=== PATIENT | female | born 2000 | race Caucasian/White ===

== ENCOUNTER 2024-08-08 14:37 | Emergency (ER) | payer SELFPAY | END 2024-08-08 16:22 | disposition home or self-care (01) | LOC: JP.ED 14:37 | DX: S09.90XA Unspecified injury of head, initial encounter (principal); Z79.899 Other long term (current) drug therapy; Z88.8 Allergy status to other drugs, medicaments and biological substances; W22.8XXA Striking against or struck by other objects, initial encounter | CPT/HCPCS: 99283 ==

== ENCOUNTER 2025-05-15 09:12 | Emergency (ER) | payer SELFPAY ==
[2025-05-15 10:50] LABS: BASOPHILS ABSOLUTE AUTO 0.04 K/uL (0.00-0.10); BASOPHILS PERCENT AUTO 0.7 % (0.1-1.3); EOSINOPHILS ABSOLUTE AUTO 0.14 K/uL (0.00-0.40); EOSINOPHILS PERCENT AUTO 2.5 % (0.0-5.4); IMMATURE GRAN ABSOLUTE AUTO 0.02 K/uL (0.00-0.23); IMMATURE GRAN PERCENT AUTO 0.4 % (0.0-0.7); LYMPHOCYTES ABSOLUTE AUTO 1.66 K/uL (0.8-3.3); LYMPHOCYTES PERCENT AUTO 29.4 % (11.4-47.7); MONOCYTES ABSOLUTE AUTO 0.40 K/uL (0.20-0.90); MONOCYTES PERCENT AUTO 7.1 % (3.3-12.6); NEUTROPHILS ABSOLUTE AUTO 3.38 K/uL (1.0-7.6); NEUTROPHILS PERCENT AUTO 59.9 % (40.0-78.1); PLATELET COUNT,PLT 187 K/uL (130-375); RED BLOOD CELL COUNT 4.55 M/uL (3.77-5.24); WHITE BLOOD CELL COUNT,WBC 5.6 K/uL (3.2-11.0)
[2025-05-15 11:10] LABS: A/G RATIO 1.1 (1.2-2.2); ALANINE AMINOTRANSFERASE,ALT 29 U/L (12-78); ASPARTATE AMNIOTRANSFERASE,AST 13 U/L (15-37); BILIRUBIN TOTAL 0.3 mg/dL (0.2-1.0); BLOOD UREA NITROGEN,BUN 12 mg/dL (7-18); CARBON DIOXIDE,CO2 32 mmol/L (21-32); CHLORIDE,CL 105 mmol/L (100-108); CREATININE 0.6 mg/dL (0.6-1.0); EST CRCL DRUG DOSING (CG) 122.69 mL/min; ESTIMATED GFR 127 mL/min (>60); GLUCOSE RANDOM 85 mg/dL (74-106); POTASSIUM,K 4.6 mmol/L (3.6-5.2); PROTEIN TOTAL,TP 6.6 g/dL (6.4-8.2); SODIUM,NA 140 mmol/L (140-148)
[2025-05-15 11:45] LABS: APPEARANCE,URINE CLOUDY (CLEAR); GLUCOSE,URINE NEGATIVE (NEGATIVE); OCCULT BLOOD,URINE MODERATE (NEGATIVE)
[2025-05-15] MEDS ORDERED: Sodium Chloride 0.9% 10 ML Syringe FLUSH ONE (11:51)
[2025-05-15 11:59] LABS: SQUAMOUS EPITHELIAL CELLS,UR MANY /HPF; UROTHELIAL CELLS,URINE NOT SEEN /HPF
[2025-05-15] MEDS ORDERED: Iopamidol 612 MG/ML 100 ML Bottle IV SCH (12:00)
== END 2025-05-15 13:00 | disposition home or self-care (01) ==
LOC: JP.ED 09:12
DX: K62.5 Hemorrhage of anus and rectum (principal); F17.210 Nicotine dependence, cigarettes, uncomplicated; Z90.49 Acquired absence of other specified parts of digestive tract; Z79.899 Other long term (current) drug therapy; Z91.048 Other nonmedicinal substance allergy status
CPT/HCPCS: 36415; 80053; 81001; 81025; 85025; 86140; 99284; 99285

== ENCOUNTER 2025-05-19 07:57 | Day surgery (SDC) | payer SELFPAY ==
[2025-05-19] MEDS: Lactated Ringers 1,000 ML IV SCH (09:14)
[2025-05-19] MEDS ORDERED: Propofol 200 MG/20 ML SDV ONE (10:05)
[2025-05-19] MEDS ORDERED: fentaNYL 100 MCG/2 ML SDV ONE (10:06)
[2025-05-19] MEDS ORDERED: Midazolam 1 MG/ML 2 ML SDV ONE (10:06)
== END 2025-05-19 11:29 | disposition home or self-care (01) ==
LOC: JP.SDS 07:57
PROVIDERS: ATTEND Family Medicine
DX: K62.5 Hemorrhage of anus and rectum (principal); E66.9 Obesity, unspecified
CPT/HCPCS: 45378; 81025; J2250; J2704; J3010; J7120